=== PATIENT | male | born 1965 | race Caucasian/White ===

== ENCOUNTER 2022-10-28 05:37 | Emergency (ER) | payer OTHER, SELFPAY ==
[2022-10-28 05:50] VITALS: BP 135/101; PULSE 89; RESP 18; TEMP 36.7; O2SAT 99; BMI 33.2
[2022-10-28 05:57] LABS: Appearance Urine Clear (Clear); Bilirubin Urine Negative (Negative); Blood Urine Negative (Negative); Color Urine Yellow (Yellow); Glucose Urine Negative (Negative); Ketones Urine Trace (Negative); Leukocyte Esterase Urine Negative (Negative); Nitrite Urine Negative (Negative); Protein Urine 2+ (Negative); Specific Gravity Urine 1.025 (1.000-1.030)
[2022-10-28 06:05] LABS: Bacteria Urine Few; Mucus Urine Few; RBC Urine 0-2 (0-2); Squamous Epithelial Cell Urine Few (None-Few); WBC Urine 0-2 (0-5)
[2022-10-28 06:14] VITALS: TEMP 36.7
[2022-10-28] MEDS: KETOROLAC 30 MG/ML inj IM (06:14)
[2022-10-28] MEDS: ONDANSETRON ODT 4 MG TAB PO (06:14)
--- NOTE | 2022-10-28 06:19 | CRLHL7_ITS ---
For Patients: As a result of the Century Cures Act, medical imaging exams and procedure reports are released immediately into your electronic medical record. You may view this report before your referring provider. If you have questions, please contact your health care provider. INDICATION: LEFT FLANK PAIN, R/O KIDNEY STONE TECHNIQUE: CT abdomen and pelvis without contrast, stone protocol. COMPARISON: None. FINDINGS: Kidney/ureters: Mild left perinephric and periureteral inflammation with minimal left hydronephrosis. No evidence of ureteral calculus. However, there is a 3 mm calculus layering within the bladder which may represent a recently passed s tone. Liver/gallbladder/bile ducts: The liver is normal in size, shape and attenuation. Gallbladder is normal without visualized stones or inflammation. No biliary dilatation. Spleen/pancreas/adrenal glands: The spleen, adrenal glands and pancreas are within normal limits. GI tract: No evidence of bowel obstruction. Colonic diverticulosis without evidence of acute diverticulitis. Probable appendectomy. Abdominal wall/omentum/peritoneum: No free air or significant free fluid. No mass or inflammation. Lymph nodes: No lymphadenopathy. Pelvis: Mild prostatomegaly. Lower chest: Unremarkable. Bones: Chronic bilateral L5 pars defects. Mild multilevel degenerative spondylosis. IMPRESSION: Mild left perinephric and periureteral inflammation with minimal left hydronephrosis. No evidence of ureteral calculus. However, there is a 3 mm calculus layering within the bladder which may represent a recently passed stone. Colonic diverticulosis without evidence of acute diverticulitis. Mild prostatomegaly. Please note that all CT scans at this facility use dose modulation, iterative reconstruction, and/or weight-based dosing when appropriate to reduce radiation dose to as low as reasonably achievable. Dictated by Leo Dumont MD @ 10/28/2022 7:38:50 AM (Electronically Signed)
--- NOTE | 2022-10-28 07:09 | ED_ITS ---
HPI - General Adult General Chief complaint: Flank Pain Stated complaint: left flank pain, possible kidney stone Time Seen by Provider: 10/28/22 05:55 Source: patient Mode of arrival: ambulatory Limitations: no limitations History of Present Illness HPI narrative: 57-year-old male with no chronic medical history presents to the emergency department for evaluation of left flank pain that started this morning. He reports that he woke as usual early, went out to work out, pain started gradually was accompanied by vomiting x2. He has not noted any fever or hematuria. No trauma or injury. Did try taking 2 Tylenol which improved his pain a little. He does have a history of known kidney stones and is concerned that this could be a kidney stone again. He has never required lithotripsy, stent placement or surgery for stones. He is not immunosuppressed, he does not take any anticoagulants. Pain does not radiate. Crampy and intermittent. He reports that he is currently undergoing treatment for a cellulitis of his right lateral hand, he had a skin cancer removed became aim infected and has been on amoxicillin for several weeks. Reports that this is going well. Past medical history he states is benign, no major long-term health problems, denies prescription medications, nonsmoker. No pertinent travel. ROS is notable for the urinary musculoskeletal symptoms as above, otherwise denies times 12 systems. Related Data Home Medications Medication Instructions Recorded Confirmed No Known Home Medications 10/28/22 10/28/22 Allergies Allergy/AdvReac Type Severity Reaction Status Date / Time No Known Drug Allergies Allergy Verified 10/28/22 05:50 [facility] Medical History (Updated 10/28/22 @ 07:52 by Deanne Giron MD) No significant past medical history Surgical History (Updated 10/28/22 @ 06:23 by Marcio Barrios RN) No significant past surgical history Social History Smoking Status: Never smoker How often do you have a drink containing alcohol: never How often do you have six or more drinks on one occasion: Never AUDIT-C Alcohol total score: 0 Non-prescribed substance use: denies use Exam Const: Vital Signs, click to edit/add: Vital Signs - 24 hr 10/28/22 05:50 10/28/22 06:14 Temperature 98.1 F 98.1 F Pulse Rate [Right Pulse Oximeter] 89 Respiratory Rate 18 Blood Pressure [Ri ght Upper Arm] 135/101 H Pulse Oximetry 99 Oxygen Delivery Me thod Room Air Documenting provider has reviewed patient's vital signs: yes Common normals: no apparent distress General appearance: cooperative, comfortable and well kempt HENMT: Common normals: normocephalic and head/scalp atraumatic Head and scalp: normocephalic and atraumatic Face and sinus: normal facial exam Mouth: oral and palatal mucosa normal Eye: Common normals: conjunctivae normal General eye: normal appearance of both eyes Conjunctiva: conjunctiva(e) normal Resp: Common normals: normal respiratory effort, no use of accessory muscles and clear to auscultation bilaterally Effort & inspection: able to speak in complete sentences Auscultation: clear to auscultation bilaterally Cardio: Common normals: regular rate, regular rhythm, S1 normal heart sound, S2 normal heart sound and no murmurs Rate: regular rate Rhythm: regular rhythm Heart sounds: S1 normal and S2 normal GI: Common normals: Normal to inspection, nondistended, normoactive bowel sounds present, soft to palpation, no hepatosplenomegaly and no masses Palpation: soft and no hepatosplenomegaly : Common normals: no CVA tenderness Bladder/kidney exam: no CVA tenderness Other: Mild tenderness to palpation of left lower flank area, paraspinal muscles. Back & Pelvis: Common normals: no CVA tenderness Extremity: Common normals: no pedal edema Psych: Appearance: well kempt Skin: Narrative: [place] discoloration to right hand dorsal 4th and 5th MCP area but no swelling. No skin breakdown. Course Course Hospital Course: Concern for kidney stone, muscle strain, rhabdomyolysis, UTI, intra-abdominal pathology, gastroenteritis, shingles, among others. Recommend urinalysis, CT scan of the abdomen and pelvis. Did offer watchful waiting with Toradol and Zofran, discussed that this could potentially miss a stone that may require operative intervention. He was agreeable to proceeding with CT scan. Will check basic labs for CRP, CPK, kidney function since urinalysis is not clear cut. Toradol and Zofran for symptom control, await findings. Reevaluation(s) Time of Reevaluation #1: 07:52 Reevaluation #1: Marked improvement in pain with Toradol. Lab and CT findings discussed with patient. 3 mm stone has now passed into bladder. Discussed typical course of healing. Drink lots of fluids, may return to work. Tylenol and ibuprofen as needed. Alarm symptoms reviewed that would warrant ED follow-up. He verbalizes understanding and agreement Vital Signs Vital signs: Initial Vital Signs Temperature 98.1 F 10/28/22 05:50 Temperature Source Temporal Artery Scan 10/28/22 05:50 Pulse Rate 89 10/28/22 05:50 Respiratory Rate 18 10/28/22 05:50 Blood Pressure 135/101 H 10/28/22 05:50 Blood Pressure Mean 112 H 10/28/22 05:50 Blood Pressure Position Sitting 10/28/22 05:50 Pulse Oximetry 99 10/28/22 05:50 Oxygen Delivery Method Room Air 10/28/22 05:50 Vital Signs Temperature 98.1 F 10/28/22 05:50 Pulse Rate 89 10/28/22 05:50 Respiratory Rate 18 10/28/22 05:50 Blood Pressure 135/101 H 10/28/22 05:50 Pulse Oximetry 99 10/28/22 05:50 Oxygen Delivery Method Room Air 10/28/22 05:50 Temperature 98.1 F 10/28/22 06:14 Pulse Rate 89 10/28/22 05:50 Respiratory Rate 18 10/28/22 05:50 Blood Pressure 135/101 H 10/28/22 05:50 Pulse Oximetry 99 10/28/22 05:50 Oxygen Delivery Method Room Air 10/28/22 05:50 Medical Decision Making Lab Data Lab results reviewed: Yes I reviewed the patient's lab results Lab results narrative: Reassuring. CPK likely mildly elevated from frequent work out. Labs: Lab Results 10/28/22 10/28/22 10/28/22 Range/Units 05:43 06:47 06:47 WBC 5.53 (4.50-11.00) K/uL RBC 5.38 (4.30-5.90) m/uL Hgb 15.2 (13.5-17.5) gm/dL Hct 46.2 (37.0-53.0) % MCV 86 (80-100) fL MCH 28 (26-34) pg MCHC 33 (32-36) gm/dL RDW Coeff of Devin 12.9 (11.5-15.5) % Plt Count 197 (140-440) K/uL Neut % (Auto) 69.4 (42.0-72.0) % Lymph % (Auto) 21.5 (20-44) % Mathews % (Auto) 7.1 (0.0-11.0) % Eos % (Auto) 1.1 (0.0-7.0) % Baso % (Auto) 0.5 (0.0-3.0) % Neut # (Auto) 3.84 (1.7-7.0) K/uL Lymph # (Auto) 1.19 (0.90-2.90) K/uL Mathews # (Auto) 0.40 (0.00-0.90) K/UL Eos # (Auto) 0.06 (0.00-0.50) K/uL Baso # (Auto) 0.03 (0.00-0.30) K/uL Sodium 138 (135-149) mmol/L Potassium 4.2 (3.6-5.1) mmol/L Chloride 106 (96-114) mmol/L Carbon Dioxide 26 (20-32) mmol/L BUN 21 (7-30) mg/dL Creatinine 1.2 (0.5-1.5) mg/dL Estimated Creat Clear 67.92 Estimated GFR 71 ml/min Glucose 97 (60-115) mg/dL Calcium 9.4 (8.4-10.6) mg/dL Total Creatine Kinase 374 H (54-186) U/L C-Reactive Protein < 0.5 L Cancelled (0.5-1.0) mg/dL Lipase 99 (23-300) U/L Urine Color Yellow (Yellow) Urine Appearance Clear (Clear) Urine pH 7.0 (5.0-8.5) Ur Specific Vanduser 1.025 (1.000-1.030) Urine Protein 2+ A (Negative) Urine Glucose (UA) Negative (Negative) Urine Ketones Trace A (Negative) Urine Blood Negative (Negative) Urine Nitrite Negative (Negative) Urine Bilirubin Negative (Negative) Urine Urobilinogen 1.0 (0.2-1.0) Ur Leukocyte Esterase Negative (Negative) Urine RBC 0-2 (0-2) Urine WBC 0-2 (0-5) Ur Squamous Epith Cells Few (None-Few) Urine Bacteria Few A (None) Urine Mucus Few A (None) 06/19/23 Range/Units 06:47 WBC (4.50-11.00) K/uL RBC (4.30-5.90) m/uL Hgb (13.5-17.5) gm/dL Hct (37.0-53.0) % MCV (80-100) fL MCH (26-34) pg MCHC (32-36) gm/dL RDW Coeff of Devin (11.5-15.5) % Plt Count (140-440) K/uL Neut % (Auto) (42.0-72.0) % Lymph % (Auto) (20-44) % Mathews % (Auto) (0.0-11.0) % Eos % (Auto) (0.0-7.0) % Baso % (Auto) (0.0-3.0) % Neut # (Auto) (1.7-7.0) K/uL Lymph # (Auto) (0.90-2.90) K/uL Mathews # (Auto) (0.00-0.90) K/UL Eos # (Auto) (0.00-0.50) K/uL Baso # (Auto) (0.00-0.30) K/uL Sodium (135-149) mmol/L Potassium (3.6-5.1) mmol/L Chloride (96-114) mmol/L Carbon Dioxide (20-32) mmol/L BUN (7-30) mg/dL Creatinine (0.5-1.5) mg/dL Estimated Creat Clear Estimated GFR ml/min Glucose (60-115) mg/dL Calcium (8.4-10.6) mg/dL Total Creatine Kinase (54-186) U/L C-Reactive Protein (0.5-1.0) mg/dL Lipase Cancelled (23-300) U/L Urine Color (Yellow) Urine Appearance (Clear) Urine pH (5.0-8.5) Ur Specific V[place]user (1.000-1.030) Urine Protein (Negative) Urine Glucose (UA) (Negative) Urine Ketones (Negative) Urine Blood (Negative) Urine Nitrite (Negative) Urine Bilirubin (Negative) Urine Urobilinogen (0.2-1.0) Ur Leukocyte Esterase (Negative) Urine RBC (0-2) Urine WBC (0-5) Ur Squamous Epith Cells (None-Few) Urine Bacteria (None) Urine Mucus (None) Imaging Data CT scan - pelvis: Attestation: I have reviewed the pertinent imaging results. My impression: Vascular calcifications make it tough to interpret but there is a small stone I am getting it in the 2-3 mm range in the top part of the bladder, some mild left-sided hydronephrosis, likely represented a ureteral stone. Radiologist's impression: IMPRESSION: Mild left perinephric and periureteral inflammation with minimal left hydronephrosis. No evidence of ureteral calculus. However, there is a 3 mm calculus layering within the bladder which may represent a recently passed stone. Colonic diverticulosis without evidence of acute diverticulitis. Mild prostatomegaly. Discharge Plan Discharge Clinical Impression: Left ureteral stone Patient Disposition: Home, Self-Care Condition: Improved Instructions: Ureteral Stones (ED) Additional Instructions: As we discussed, you had a 3 mm kidney stone that has passed into the bladder now. At some point, this will leave the bladder through your urine. For most, this is within a week. Stones in the bladder are not as dangerous as those in the ureter. There were no signs of infection today. This is good news. If you start having high fevers, burning with urination or other worrisome symptoms like severe abdominal pain and persistent vomiting, come back to the emergency department. Drink lots of fluid for the next few days. You do not need to strain your urine or return the stone. It is okay to use Tylenol and ibuprofen for pain. The Toradol that you were given today will not cause drowsiness or impairment, you may return to work. Activity Level: No Restrictions Discharge Diet: Regular Prescriptions: No Action No Known Home Medications Follow Up/Referrals: Provider,Not a Local [Primary Care Provider] - Stand Alone Forms: Adjug Info Instructions
[2022-10-28 07:19] LABS: Basophils Absolute Auto 0.03 K/uL (0.00-0.30); Basophils Percent Auto 0.5 % (0.0-3.0); Eosinophils Absolute Auto 0.06 K/uL (0.00-0.50); Eosinophils Percent Auto 1.1 % (0.0-7.0); Hematocrit 46.2 % (37.0-53.0); Hemoglobin* 15.2 gm/dL (13.5-17.5); Immature Granulocytes Abs Auto 0.02 K/uL (0.00-0.30); Immature Granulocytes Pct Auto 0.4 %; Lymphocytes Absolute Auto 1.19 K/uL (0.90-2.90); Lymphocytes Percent Auto 21.5 % (20-44); Mean Corpuscular HGB Conc 33 gm/dL (32-36); Mean Corpuscular Hemoglobin 28 pg (26-34); Mean Corpuscular Volume 86 fL (80-100); Monocytes Percent Auto 7.1 % (0.0-11.0); Neutrophils Absolute Auto 3.84 K/uL (1.7-7.0); Neutrophils Percent Auto 69.4 % (42.0-72.0); Platelet Count* 197 K/uL (140-440); RDW Coefficient of Variation % 12.9 % (11.5-15.5); Red Blood Count 5.38 m/uL (4.30-5.90); White Blood Count* 5.53 K/uL (4.50-11.00)
[2022-10-28 07:30] LABS: Slide Review Reflex No
[2022-10-28 07:37] LABS: Chloride* 106 mmol/L (96-114)
[2022-10-28 07:38] LABS: Potassium* 4.2 mmol/L (3.6-5.1); Sodium* 138 mmol/L (135-149)
[2022-10-28 07:40] LABS: Creatine Kinase* 374 U/L (54-186); Creatinine* 1.2 mg/dL (0.5-1.5); Est. Creatinine Clearance* 67.92; Estimated Glomerular Filt Rate 71 ml/min
[2022-10-28 07:41] LABS: Blood Urea Nitrogen* 21 mg/dL (7-30); Calcium* 9.4 mg/dL (8.4-10.6); Carbon Dioxide* 26 mmol/L (20-32); Glucose* 97 mg/dL (60-115); Lipase* 99 U/L (23-300)
[2022-10-28 07:45] LABS: C Reactive Protein* < 0.5 mg/dL (0.5-1.0)
== END 2022-10-28 08:17 | disposition home or self-care (01) ==
PROVIDERS: Emergency Provider Family Medicine
DX: N20.1 Calculus of ureter (principal)
CPT/HCPCS: 36415; 74176; 80048; 81001; 81003; 81015; 82550; 83690; 85025; 86140; 87086; 96372; 99284; A9270; J1885